=== PATIENT | female | born 1975 | race Two or more races ===

== ENCOUNTER 2017-07-18 14:19 | Emergency (ER) | payer OTHER ==
[~2017-07-18] VITALS: Ht 154.9 cm; Wt 90.7 kg
[2017-07-18 14:29] VITALS: BP 210/107
== END 2017-07-18 16:04 | disposition home or self-care (01) ==
LOC: ER 14:28
DX: S91.201A Unspecified open wound of right great toe with damage to nail, initial encounter (principal); S90.111A Contusion of right great toe without damage to nail, initial encounter; E11.9 Type 2 diabetes mellitus without complications; I10 Essential (primary) hypertension; Z88.0 Allergy status to penicillin; W19.XXXA Unspecified fall, initial encounter; Y93.89 Activity, other specified; Y92.89 Other specified places as the place of occurrence of the external cause; Y99.8 Other external cause status
CPT/HCPCS: 73630; 82962